=== PATIENT | female | born 1945 | race Caucasian/White ===

== ENCOUNTER 2020-05-02 20:04 | Inpatient (IN) ==
[2020-05-02] MEDS ORDERED: Morphine Sulfate 2 MG/ML SYRINGE IVP ONE ×2 (20:42→21:48)
[2020-05-02] MEDS ORDERED: Ondansetron 4 MG/2 ML VIAL IVP ONE (20:43)
[2020-05-02 20:58] LABS: Basophils # 0.1 K/mcL (0.0-0.2); Basophils % 0.3 %; Eosinophils % 0.2 %; Hematocrit 41.6 % (35.3-44.9); Hemoglobin 13.5 g/dL (11.5-15.4); Immature Granulocytes % 0.8 % (0-4); Lymphocytes # 5.5 K/mcL (0.6-4.6); Lymphocytes % 30.7 %; Mean Corpuscular HGB Conc 32.5 g/dL (31.6-35.5); Mean Corpuscular Hemoglobin 30.3 pg (28.0-33.3); Mean Corpuscular Volume 93.3 fL (83.0-100.0); Mean Platelet Volume 10.7 fL (9.4-12.4); Monocytes # 1.3 K/mcL (0.0-1.3); Platelet Count 384 K/mcL (140-400); Red Blood Count 4.46 M/mcL (3.82-4.97); Red Cell Distribution Width 13.1 % (11.5-14.5)
[2020-05-02 21:01] LABS: INR 0.9; Prothrombin Time 10.9 Seconds (9.4-12.1)
[2020-05-02 21:04] LABS: Activated Partial Thrombo Time 24.2 Seconds (26.0-36.0)
[2020-05-02 21:15] LABS: Platelet Estimate Normal (Normal); Reactive Lymphocytes Present (Not Present)
[2020-05-02 21:16] LABS: Alanine Aminotransferase 11 Units/L (7-52); Albumin 4.1 g/dL (3.5-5.7); Albumin/Globulin Ratio 1.5 (1.1-2.2); Alkaline Phosphatase 52 Units/L (34-104); Aspartate Amino Transferase 11 Units/L (13-39); BUN/Creatinine Ratio 25 (6-26); Bilirubin,Direct 0.1 mg/dL (0.0-0.2); Bilirubin,Indirect 0.4 mg/dL (0.0-1.0); Bilirubin,Total 0.5 mg/dL (0.3-1.0); Blood Urea Nitrogen 21 mg/dL (8-23); Calcium 8.6 mg/dL (8.6-10.3); Carbon Dioxide 28 mEq/L (23-29); Chloride 100 mEq/L (98-107); Globulin 2.8 g/dL (2.4-3.5); Glucose 126 mg/dL (70-105); Osmolality,Calculated 287 (280-300); Potassium 3.7 mEq/L (3.5-5.1); Sodium 136 mEq/L (136-145); Total Protein 6.9 g/dL (6.4-8.9); eGFR For African Americans > 60 (> 60); eGFR For Non-African Americans > 60 (> 60)
[2020-05-02] MEDS ORDERED: *HR* Labetalol 20 MG/4 ML SYRINGE IVP ONE (21:36)
[2020-05-02 21:50] LABS: Adenovirus Not Detected (Not Detect); Bordetella Pertussis Not Detected (Not Detect); Chlamydophila pneumoniae Not Detected (Not Detect); Coronavirus 229E Not Detected (Not Detect); Coronavirus HKU1 Not Detected (Not Detect); Coronavirus NL63 Not Detected (Not Detect); Coronavirus OC43 Not Detected (Not Detect); Human Metapneumovirus Not Detected (Not Detect); Human Rhinovirus/Enterovirus Not Detected (Not Detect); Influenza A Subtype 2009 H1 Not Detected (Not Detect); Influenza B Not Detected (Not Detect); Mycoplasma pneumoniae Not Detected (Not Detect); Parainfluenza Virus 1 Not Detected (Not Detect); Parainfluenza Virus 2 Not Detected (Not Detect); Parainfluenza Virus 3 Not Detected (Not Detect); Parainfluenza Virus 4 Not Detected (Not Detect); Respiratory Syncytial Virus Not Detected (Not Detect); SARS-CoV-2 Not Detected (Not Detect)
[2020-05-02] MEDS ORDERED: *HR* FentaNYL (PF) 100 MCG/2 ML VIAL IVP ONE (22:40)
[2020-05-02 22:58] LABS: Bacteria,Urine Moderate per hpf (None-Few); Bilirubin,Urine Negative (Negative); Blood,Urine Moderate (Negative); Clarity,Urine Clear (Clear); Color,Urine Light-Yellow (Yellow); Glucose,Urine (UA) Normal (Normal); Ketones,Urine Negative (Negative); Leukocyte Esterase,Urine Negative (Negative); Mucus,Urine Few per lpf (None-Few); Nitrite,Urine Positive (Negative); Protein,Urine 70 mg/dL (Neg-Trace); Specific Gravity,Urine 1.025 (1.010-1.025); Squamous Epithelial Cell,Urine Few per hpf (None-Few); Urobilinogen,Urine Normal (Normal)
[2020-05-02] MEDS ORDERED: *HR* HYDROmorphone (PF) 1 MG/ML SYRINGE IVP ONE (23:55)
[2020-05-02] MEDS ORDERED: Naloxone 0.4 MG/ML INJ IVP PRN (23:57)
[2020-05-02] MEDS ORDERED: Ondansetron 4 MG/2 ML VIAL IVP PRN (23:57)
[2020-05-03] MEDS: cefTRIAXone 1,000 MG in Water for inj. (sterile) 10 ML IVP SCH (01:21)
[2020-05-03] MEDS: *HR* OxyCODONE Oral Soln 5 MG/5 ML UD.LIQ PO PRN ×2 (04:16→08:59)
[2020-05-03 06:00] LABS: Basophils # 0.1 K/mcL (0.0-0.2); Basophils % 0.2 %; Hematocrit 39.6 % (35.3-44.9); Hemoglobin 12.7 g/dL (11.5-15.4); Immature Granulocytes % 0.6 % (0-4); Lymphocytes # 1.5 K/mcL (0.6-4.6); Lymphocytes % 6.7 %; Mean Corpuscular HGB Conc 32.1 g/dL (31.6-35.5); Mean Corpuscular Hemoglobin 30.8 pg (28.0-33.3); Mean Corpuscular Volume 96.1 fL (83.0-100.0); Mean Platelet Volume 11.2 fL (9.4-12.4); Monocytes # 1.3 K/mcL (0.0-1.3); Monocytes % 6.1 %; Neutrophils # 18.8 K/mcL (1.6-8.9); Platelet Count 322 K/mcL (140-400); Red Blood Count 4.12 M/mcL (3.82-4.97); Red Cell Distribution Width 13.2 % (11.5-14.5); Segmented Neutrophils % 86.4 %; White Blood Count 21.8 K/mcL (4.3-11.1)
[2020-05-03 06:18] LABS: BUN/Creatinine Ratio 30 (6-26); Blood Urea Nitrogen 24 mg/dL (8-23); Calcium 8.5 mg/dL (8.6-10.3); Carbon Dioxide 27 mEq/L (23-29); Chloride 101 mEq/L (98-107); Glucose 133 mg/dL (70-105); Osmolality,Calculated 290 (280-300); Sodium 137 mEq/L (136-145); eGFR For African Americans > 60 (> 60); eGFR For Non-African Americans > 60 (> 60)
[2020-05-03] MEDS ORDERED: *HR* OxyCODONE Oral Soln 5 MG/5 ML UD.LIQ PO PRN (07:19)
[2020-05-03] MEDS: Ondansetron 4 MG/2 ML VIAL IVP SCH ×4 (11:07→23:31)
[2020-05-03] MEDS: Acetaminophen IV 1,000 MG/100 ML INFUS..BTL IVPB SCH ×2 (11:29→18:13)
[2020-05-03 16:31] LABS: Adenovirus Not Detected (Not Detect); Bordetella Pertussis Not Detected (Not Detect); Chlamydophila pneumoniae Not Detected (Not Detect); Coronavirus 229E Not Detected (Not Detect); Coronavirus HKU1 Not Detected (Not Detect); Coronavirus NL63 Not Detected (Not Detect); Coronavirus OC43 Not Detected (Not Detect); Human Metapneumovirus Not Detected (Not Detect); Human Rhinovirus/Enterovirus Not Detected (Not Detect); Influenza A Subtype 2009 H1 Not Detected (Not Detect); Influenza B Not Detected (Not Detect); Mycoplasma pneumoniae Not Detected (Not Detect); Parainfluenza Virus 1 Not Detected (Not Detect); Parainfluenza Virus 2 Not Detected (Not Detect); Parainfluenza Virus 3 Not Detected (Not Detect); Parainfluenza Virus 4 Not Detected (Not Detect); Respiratory Syncytial Virus Not Detected (Not Detect); SARS-CoV-2 Not Detected (Not Detect)
[2020-05-03] MEDS: Morphine Sulfate 2 MG/ML SYRINGE IVP PRN (22:56)
[2020-05-04] MEDS: cefTRIAXone 1,000 MG in Water for inj. (sterile) 10 ML IVP SCH (02:56)
[2020-05-04] MEDS: Acetaminophen IV 1,000 MG/100 ML INFUS..BTL IVPB SCH ×2 (03:02→18:06)
[2020-05-04 04:52] LABS: Hematocrit 38.6 % (35.3-44.9); Hemoglobin 12.2 g/dL (11.5-15.4); Mean Corpuscular HGB Conc 31.6 g/dL (31.6-35.5); Mean Corpuscular Volume 95.1 fL (83.0-100.0); Platelet Count 276 K/mcL (140-400); Red Blood Count 4.06 M/mcL (3.82-4.97); Red Cell Distribution Width 13.5 % (11.5-14.5); White Blood Count 15.9 K/mcL (4.3-11.1)
[2020-05-04 05:07] LABS: BUN/Creatinine Ratio 30 (6-26); Blood Urea Nitrogen 25 mg/dL (8-23); Calcium 8.1 mg/dL (8.6-10.3); Carbon Dioxide 27 mEq/L (23-29); Chloride 97 mEq/L (98-107); Glucose 97 mg/dL (70-105); Magnesium 2.1 mg/dL (1.6-2.6); Osmolality,Calculated 280 (280-300); Phosphorous 3.5 mg/dL (2.7-4.5); Potassium 3.7 mEq/L (3.5-5.1); Sodium 133 mEq/L (136-145); eGFR For African Americans > 60 (> 60); eGFR For Non-African Americans > 60 (> 60)
[2020-05-04] MEDS: Ondansetron 4 MG/2 ML VIAL IVP SCH (05:56)
[2020-05-04] MEDS ORDERED: amLODIPine 5 MG TABLET PO SCH (09:00)
[2020-05-04] MEDS: Morphine Sulfate 2 MG/ML SYRINGE IVP PRN (09:48)
[2020-05-04] MEDS ORDERED: *HR* Propofol 200 MG/20 ML VIAL IVP ONE (10:08)
[2020-05-04] MEDS ORDERED: *HR* FentaNYL (PF) 100 MCG/2 ML VIAL ONE ×2 (10:08→12:20)
[2020-05-04] MEDS ORDERED: Lidocaine -MPF 2% 2 ML VIAL ONE (10:09)
[2020-05-04] MEDS ORDERED: Lidocaine HCL 4 ML Topical Solution (Laryng-O-Jet Kit Sterile Pak) TP ONE (10:09)
[2020-05-04] MEDS ORDERED: *HR* Succinylcholine 200 MG/10 ML VIAL IVP ONE (10:09)
[2020-05-04] MEDS ORDERED: Dexamethasone 4 MG/ML VIAL ONE (10:09)
[2020-05-04] MEDS ORDERED: Ondansetron 4 MG/2 ML VIAL ONE (10:09)
[2020-05-04] MEDS ORDERED: Famotidine 20 MG/2 ML VIAL IVP ONE ×2 (10:14→14:37)
[2020-05-04] MEDS ORDERED: *HR* OxyCODONE Immed Rel 5 MG TABLET PO PRN (10:21)
[2020-05-04] MEDS ORDERED: Ondansetron 4 MG/2 ML VIAL IVP PRN (10:21)
[2020-05-04] MEDS ORDERED: *HR* Labetalol 20 MG/4 ML SYRINGE IVP PRN (10:21)
[2020-05-04] MEDS ORDERED: Famotidine 20 MG/2 ML VIAL ONE (10:57)
[2020-05-04] MEDS ORDERED: ceFAZolin 2,000 MG in 0.9 % Sodium Chloride 100 ML IVPB ONE (11:43)
[2020-05-04] MEDS ORDERED: Ethanol\\Acetic Acid\\Na Ace\\Ben 1,000 ML IRRIG.SOLN IR ONE (12:24)
[2020-05-04] MEDS: *HR* HYDROmorphone PF 0.5 MG/0.5 ML SYRINGE IVP PRN ×2 (13:26→13:36)
[2020-05-04 13:39] LABS: Hematocrit 37.9 % (35.3-44.9)
[2020-05-04] MEDS ORDERED: Sennosides 8.6 MG TABLET PO PRN (14:37)
[2020-05-04] MEDS ORDERED: Naloxone 0.4 MG/ML INJ IVP PRN (14:37)
[2020-05-04] MEDS ORDERED: *HR* OxyCODONE/APAP 5/325 TABLET PO PRN (14:37)
[2020-05-04] MEDS: CeFAZolin 2 GM/120 ML BAG IVPB SCH (19:15)
[2020-05-05] MEDS: Acetaminophen IV 1,000 MG/100 ML INFUS..BTL IVPB SCH ×3 (02:42→19:36)
[2020-05-05] MEDS: CeFAZolin 2 GM/120 ML BAG IVPB SCH (04:03)
[2020-05-05 06:58] LABS: Hematocrit 30.6 % (35.3-44.9); Mean Corpuscular HGB Conc 32.4 g/dL (31.6-35.5); Mean Corpuscular Hemoglobin 30.6 pg (28.0-33.3); Mean Corpuscular Volume 94.4 fL (83.0-100.0); Mean Platelet Volume 10.9 fL (9.4-12.4); Platelet Count 225 K/mcL (140-400); Red Blood Count 3.24 M/mcL (3.82-4.97); Red Cell Distribution Width 13.3 % (11.5-14.5); White Blood Count 15.6 K/mcL (4.3-11.1)
[2020-05-05 06:59] LABS: Hemoglobin 9.9 g/dL (11.5-15.4)
[2020-05-05 07:18] LABS: BUN/Creatinine Ratio 28 (6-26); Blood Urea Nitrogen 24 mg/dL (8-23); Calcium 7.5 mg/dL (8.6-10.3); Carbon Dioxide 27 mEq/L (23-29); Chloride 100 mEq/L (98-107); Glucose 108 mg/dL (70-105); Magnesium 2.2 mg/dL (1.6-2.6); Osmolality,Calculated 281 (280-300); Phosphorous 3.9 mg/dL (2.7-4.5); Sodium 133 mEq/L (136-145); eGFR For African Americans > 60 (> 60); eGFR For Non-African Americans > 60 (> 60)
[2020-05-05] MEDS: *HR* OxyCODONE Immed Rel 5 MG TABLET PO PRN (10:12)
[2020-05-05] MEDS: Aspirin Enteric Coated 81 MG Tablet PO SCH (10:13)
[2020-05-05] MEDS: Cholecalciferol (D-3) 1,000 UNIT (25MCG) TABLET PO SCH (10:14)
[2020-05-05] MEDS: Calcium Gluconate 1gm/50mL 1 GM/50 ML BAG IVPB SCH ×2 (10:15→11:24)
[2020-05-05] MEDS: amLODIPine 5 MG TABLET PO SCH (10:15)
[2020-05-05 12:27] LABS: Basophils % 0.2 %; Eosinophils % 0.2 %; Hematocrit 31.9 % (35.3-44.9); Hemoglobin 10.1 g/dL (11.5-15.4); Immature Granulocytes % 0.7 % (0-4); Lymphocytes # 1.9 K/mcL (0.6-4.6); Lymphocytes % 10.2 %; Mean Corpuscular HGB Conc 31.7 g/dL (31.6-35.5); Mean Corpuscular Volume 94.7 fL (83.0-100.0); Mean Platelet Volume 10.8 fL (9.4-12.4); Monocytes # 1.4 K/mcL (0.0-1.3); Monocytes % 7.7 %; Neutrophils # 14.9 K/mcL (1.6-8.9); Platelet Count 244 K/mcL (140-400); Red Blood Count 3.37 M/mcL (3.82-4.97); Red Cell Distribution Width 13.3 % (11.5-14.5); White Blood Count 18.5 K/mcL (4.3-11.1)
[2020-05-05 12:45] LABS: % Iron Saturation 34 % (15-50); Iron 70 mcg/dL (50-170); Transferrin 145 mg/dL (203-362)
[2020-05-05 13:02] LABS: Ferritin 453 ng/mL (10-120)
[2020-05-05 13:07] LABS: Folate 4.9 ng/mL (3.0-16.0)
[2020-05-06] MEDS: *HR* OxyCODONE Immed Rel 5 MG TABLET PO PRN ×3 (01:33→19:05)
[2020-05-06 02:38] LABS: Hematocrit 31.8 % (35.3-44.9); Mean Corpuscular HGB Conc 31.4 g/dL (31.6-35.5); Mean Corpuscular Hemoglobin 30.1 pg (28.0-33.3); Mean Corpuscular Volume 95.8 fL (83.0-100.0); Mean Platelet Volume 11.4 fL (9.4-12.4); Platelet Count 247 K/mcL (140-400); Red Blood Count 3.32 M/mcL (3.82-4.97); Red Cell Distribution Width 13.6 % (11.5-14.5); White Blood Count 15.4 K/mcL (4.3-11.1)
[2020-05-06 02:54] LABS: BUN/Creatinine Ratio 32 (6-26); Blood Urea Nitrogen 30 mg/dL (8-23); Carbon Dioxide 26 mEq/L (23-29); Chloride 99 mEq/L (98-107); Glucose 102 mg/dL (70-105); Osmolality,Calculated 288 (280-300); Potassium 3.7 mEq/L (3.5-5.1); Sodium 136 mEq/L (136-145); eGFR For African Americans > 60 (> 60); eGFR For Non-African Americans 58 (> 60)
[2020-05-06] MEDS: Acetaminophen IV 1,000 MG/100 ML INFUS..BTL IVPB SCH ×3 (03:06→19:05)
[2020-05-06] MEDS: Cholecalciferol (D-3) 1,000 UNIT (25MCG) TABLET PO SCH (08:43)
[2020-05-06] MEDS: Aspirin Enteric Coated 81 MG Tablet PO SCH (08:43)
[2020-05-06] MEDS: amLODIPine 5 MG TABLET PO SCH (08:43)
[2020-05-07] MEDS: *HR* OxyCODONE Immed Rel 5 MG TABLET PO PRN ×2 (01:25→12:45)
[2020-05-07] MEDS: Acetaminophen IV 1,000 MG/100 ML INFUS..BTL IVPB SCH ×2 (03:03→12:44)
[2020-05-07] MEDS: amLODIPine 5 MG TABLET PO SCH (09:05)
[2020-05-07] MEDS: Cholecalciferol (D-3) 1,000 UNIT (25MCG) TABLET PO SCH (09:05)
[2020-05-07] MEDS: Aspirin Enteric Coated 81 MG Tablet PO SCH (09:05)
[2020-05-07 10:11] LABS: Basophils # 0.1 K/mcL (0.0-0.2); Basophils % 0.4 %; Eosinophils # 0.3 K/mcL (0.0-0.6); Eosinophils % 2.3 %; Hematocrit 28.1 % (35.3-44.9); Immature Granulocytes % 0.4 % (0-4); Lymphocytes # 1.5 K/mcL (0.6-4.6); Lymphocytes % 10.6 %; Mean Corpuscular Hemoglobin 30.9 pg (28.0-33.3); Mean Corpuscular Volume 96.6 fL (83.0-100.0); Mean Platelet Volume 10.8 fL (9.4-12.4); Monocytes # 0.9 K/mcL (0.0-1.3); Monocytes % 6.6 %; Neutrophils # 10.9 K/mcL (1.6-8.9); Platelet Count 243 K/mcL (140-400); Red Blood Count 2.91 M/mcL (3.82-4.97); Red Cell Distribution Width 13.5 % (11.5-14.5); Segmented Neutrophils % 79.7 %; White Blood Count 13.6 K/mcL (4.3-11.1)
[2020-05-07 10:20] VITALS: BP 117/64
[2020-05-07 10:30] LABS: BUN/Creatinine Ratio 37 (6-26); Blood Urea Nitrogen 31 mg/dL (8-23); Calcium 8.1 mg/dL (8.6-10.3); Carbon Dioxide 29 mEq/L (23-29); Chloride 100 mEq/L (98-107); Glucose 125 mg/dL (70-105); Magnesium 2.4 mg/dL (1.6-2.6); Osmolality,Calculated 290 (280-300); Phosphorous 4.2 mg/dL (2.7-4.5); Potassium 3.6 mEq/L (3.5-5.1); Sodium 136 mEq/L (136-145); eGFR For African Americans > 60 (> 60); eGFR For Non-African Americans > 60 (> 60)
== END 2020-05-07 16:10 | DRG 481 ==
LOC: EMEROOARM 20:04 → 3NENU 20:04 → SUATTDRO 22:42 → 3NENU 23:07
PROVIDERS: ADMIT Internal Medicine; ATTEND Internal Medicine

== ENCOUNTER 2020-11-03 15:33 | Inpatient (IN) ==
[2020-11-03] MEDS ORDERED: MOM Conc 10 ML UD.LIQ PO PRN (16:06)
[2020-11-03] MEDS ORDERED: Naloxone 0.4 MG/ML INJ IVP PRN (16:06)
[2020-11-03] MEDS ORDERED: Ondansetron 4 MG/2 ML VIAL IVP PRN (16:06)
[2020-11-03] MEDS ORDERED: Melatonin 3 MG TABLET PO PRN (16:06)
[2020-11-03 16:45] LABS: Basophils # 0.1 K/mcL (0.0-0.2); Basophils % 1.3 %; Eosinophils # 0.5 K/mcL (0.0-0.6); Eosinophils % 4.4 %; Hematocrit 40.4 % (35.3-44.9); INR 1.1; Immature Granulocytes % 0.3 % (0-4); Lymphocytes # 3.7 K/mcL (0.6-4.6); Lymphocytes % 33.2 %; Mean Corpuscular HGB Conc 32.2 g/dL (31.6-35.5); Mean Corpuscular Hemoglobin 29.4 pg (28.0-33.3); Mean Corpuscular Volume 91.4 fL (83.0-100.0); Mean Platelet Volume 10.4 fL (9.4-12.4); Monocytes # 0.7 K/mcL (0.0-1.3); Monocytes % 6.6 %; Platelet Count 342 K/mcL (140-400); Prothrombin Time 12.2 Seconds (9.4-12.1); Red Blood Count 4.42 M/mcL (3.82-4.97); Red Cell Distribution Width 14.1 % (11.5-14.5); Segmented Neutrophils % 54.2 %
[2020-11-03 17:03] LABS: BUN/Creatinine Ratio 22 (6-26); Blood Urea Nitrogen 17 mg/dL (8-23); Calcium 9.2 mg/dL (8.6-10.3); Carbon Dioxide 25 mEq/L (23-29); Chloride 102 mEq/L (98-107); Glucose 93 mg/dL (70-105); Osmolality,Calculated 285 (280-300); Potassium 3.8 mEq/L (3.5-5.1); Sodium 137 mEq/L (136-145); eGFR For African Americans > 60 (> 60); eGFR For Non-African Americans > 60 (> 60)
[2020-11-03 19:22] LABS: Adenovirus Not Detected (Not Detect); Bordetella Pertussis Not Detected (Not Detect); Chlamydophila pneumoniae Not Detected (Not Detect); Coronavirus 229E Not Detected (Not Detect); Coronavirus HKU1 Not Detected (Not Detect); Coronavirus NL63 Not Detected (Not Detect); Coronavirus OC43 Not Detected (Not Detect); Human Metapneumovirus Not Detected (Not Detect); Human Rhinovirus/Enterovirus Not Detected (Not Detect); Influenza A Subtype 2009 H1 Not Detected (Not Detect); Influenza B Not Detected (Not Detect); Mycoplasma pneumoniae Not Detected (Not Detect); Parainfluenza Virus 1 Not Detected (Not Detect); Parainfluenza Virus 2 Not Detected (Not Detect); Parainfluenza Virus 3 Not Detected (Not Detect); Parainfluenza Virus 4 Not Detected (Not Detect); Respiratory Syncytial Virus Not Detected (Not Detect); SARS-CoV-2 Not Detected (Not Detect)
[2020-11-04 03:38] LABS: Basophils # 0.1 K/mcL (0.0-0.2); Basophils % 1.3 %; Eosinophils # 0.4 K/mcL (0.0-0.6); Eosinophils % 4.6 %; Hematocrit 37.2 % (35.3-44.9); Immature Granulocytes % 0.2 % (0-4); Lymphocytes # 2.7 K/mcL (0.6-4.6); Lymphocytes % 32.3 %; Mean Corpuscular HGB Conc 32.3 g/dL (31.6-35.5); Mean Corpuscular Hemoglobin 29.5 pg (28.0-33.3); Mean Corpuscular Volume 91.4 fL (83.0-100.0); Monocytes # 0.6 K/mcL (0.0-1.3); Monocytes % 7.2 %; Neutrophils # 4.5 K/mcL (1.6-8.9); Platelet Count 317 K/mcL (140-400); Red Blood Count 4.07 M/mcL (3.82-4.97); Red Cell Distribution Width 14.2 % (11.5-14.5); Segmented Neutrophils % 54.4 %; White Blood Count 8.2 K/mcL (4.3-11.1)
[2020-11-04 03:58] LABS: BUN/Creatinine Ratio 21 (6-26); Blood Urea Nitrogen 15 mg/dL (8-23); Calcium 8.7 mg/dL (8.6-10.3); Carbon Dioxide 26 mEq/L (23-29); Chloride 104 mEq/L (98-107); Glucose 98 mg/dL (70-105); Osmolality,Calculated 287 (280-300); Potassium 3.5 mEq/L (3.5-5.1); Sodium 138 mEq/L (136-145); eGFR For African Americans > 60 (> 60); eGFR For Non-African Americans > 60 (> 60)
[2020-11-04] MEDS: Aspirin Enteric Coated 81 MG Tablet PO SCH (07:53)
[2020-11-04] MEDS: amLODIPine 5 MG TABLET PO SCH (07:54)
[2020-11-04] MEDS ORDERED: Ondansetron 4 MG/2 ML VIAL IVP PRN (14:55)
[2020-11-04] MEDS ORDERED: *HR* Propofol 200 MG/20 ML VIAL IVP ONE (15:03)
[2020-11-04] MEDS ORDERED: Lidocaine -MPF 2% 2 ML VIAL ONE (15:05)
[2020-11-04] MEDS ORDERED: Lidocaine HCL 4 ML Topical Solution (Laryng-O-Jet Kit Sterile Pak) TP ONE (15:28)
[2020-11-04] MEDS ORDERED: *HR* Rocuronium Bromide 50 MG/5 ML VIAL ONE (15:29)
[2020-11-04] MEDS ORDERED: Acetaminophen IV 1,000 MG/100 ML BAG IVPB ONE (16:09)
[2020-11-04] MEDS ORDERED: *HR* Heparin 5,000 UNIT/ML VIAL ONE (16:46)
[2020-11-04] MEDS ORDERED: EPHEDrine 50 MG/ML VIAL ONE (16:52)
[2020-11-04] MEDS ORDERED: *HR* FentaNYL (PF) 100 MCG/2 ML VIAL ONE (17:07)
[2020-11-04] MEDS ORDERED: CeFAZolin Syr 2,000MG/20 ML 2,000 MG/20 ML SYRINGE IVPB ONE (17:15)
[2020-11-04] MEDS ORDERED: Sugammadex Sodium 200 MG/2 ML VIAL IV ONE (18:45)
[2020-11-04] MEDS ORDERED: D5% in 0.45% NACL 1,000 ML IVC SCH (19:15)
[2020-11-04] MEDS: *HR* FentaNYL (PF) 100 MCG/2 ML VIAL IVP PRN ×2 (19:24→19:46)
[2020-11-04] MEDS: CeFAZolin 2 GM/120 ML BAG IVPB SCH (23:53)
[2020-11-05 01:04] LABS: Basophils % 0.2 %; Eosinophils % 0.1 %; Hematocrit 32.6 % (35.3-44.9); Hemoglobin 10.8 g/dL (11.5-15.4); Immature Granulocytes % 0.5 % (0-4); Lymphocytes # 0.8 K/mcL (0.6-4.6); Lymphocytes % 4.8 %; Mean Corpuscular HGB Conc 33.1 g/dL (31.6-35.5); Mean Corpuscular Hemoglobin 30.8 pg (28.0-33.3); Mean Corpuscular Volume 92.9 fL (83.0-100.0); Mean Platelet Volume 10.9 fL (9.4-12.4); Monocytes # 0.4 K/mcL (0.0-1.3); Monocytes % 2.2 %; Neutrophils # 15.2 K/mcL (1.6-8.9); Platelet Count 304 K/mcL (140-400); Red Blood Count 3.51 M/mcL (3.82-4.97); Red Cell Distribution Width 14.4 % (11.5-14.5); Segmented Neutrophils % 92.2 %
[2020-11-05 01:06] LABS: White Blood Count 16.5 K/mcL (4.3-11.1)
[2020-11-05 01:24] LABS: BUN/Creatinine Ratio 21 (6-26); Blood Urea Nitrogen 18 mg/dL (8-23); Calcium 8.1 mg/dL (8.6-10.3); Carbon Dioxide 24 mEq/L (23-29); Chloride 103 mEq/L (98-107); Glucose 189 mg/dL (70-105); Magnesium 1.7 mg/dL (1.6-2.6); Osmolality,Calculated 289 (280-300); Potassium 3.8 mEq/L (3.5-5.1); Sodium 136 mEq/L (136-145); eGFR For African Americans > 60 (> 60); eGFR For Non-African Americans > 60 (> 60)
[2020-11-05] MEDS: CeFAZolin 2 GM/120 ML BAG IVPB SCH (08:38)
[2020-11-05] MEDS: amLODIPine 5 MG TABLET PO SCH (08:39)
[2020-11-05] MEDS: Aspirin Enteric Coated 81 MG Tablet PO SCH (08:39)
[2020-11-05] MEDS: *HR* HYDROcodone/Acet 5/325 mg TABLET PO PRN ×3 (08:41→20:15)
[2020-11-05] MEDS ORDERED: polyethylene glycoL 3350 17 GM POWD.PACK PO PRN (08:51)
[2020-11-05] MEDS: polyethylene glycoL 3350 17 GM POWD.PACK PO SCH (10:46)
[2020-11-05] MEDS: *HR* Enoxaparin 30 MG/0.3 ML SYRINGE SQ SCH (18:15)
[2020-11-06 01:33] LABS: BUN/Creatinine Ratio 24 (6-26); Blood Urea Nitrogen 21 mg/dL (8-23); Calcium 8.2 mg/dL (8.6-10.3); Carbon Dioxide 26 mEq/L (23-29); Chloride 103 mEq/L (98-107); Glucose 113 mg/dL (70-105); Magnesium 1.8 mg/dL (1.6-2.6); Osmolality,Calculated 286 (280-300); Sodium 136 mEq/L (136-145); eGFR For African Americans > 60 (> 60); eGFR For Non-African Americans > 60 (> 60)
[2020-11-06 04:25] LABS: Basophils # 0.1 K/mcL (0.0-0.2); Basophils % 0.5 %; Eosinophils # 0.1 K/mcL (0.0-0.6); Eosinophils % 0.4 %; Hematocrit 26.6 % (35.3-44.9); Hemoglobin 8.5 g/dL (11.5-15.4); Immature Granulocytes % 0.4 % (0-4); Lymphocytes # 2.4 K/mcL (0.6-4.6); Lymphocytes % 19.2 %; Mean Corpuscular Hemoglobin 29.5 pg (28.0-33.3); Mean Corpuscular Volume 92.4 fL (83.0-100.0); Monocytes # 0.9 K/mcL (0.0-1.3); Monocytes % 6.9 %; Neutrophils # 9.2 K/mcL (1.6-8.9); Platelet Count 283 K/mcL (140-400); Red Blood Count 2.88 M/mcL (3.82-4.97); Red Cell Distribution Width 14.5 % (11.5-14.5); Segmented Neutrophils % 72.6 %; White Blood Count 12.7 K/mcL (4.3-11.1)
[2020-11-06] MEDS: *HR* Enoxaparin 30 MG/0.3 ML SYRINGE SQ SCH ×2 (05:40→17:42)
[2020-11-06] MEDS: Aspirin Enteric Coated 81 MG Tablet PO SCH (09:11)
[2020-11-06] MEDS: amLODIPine 5 MG TABLET PO SCH (09:11)
[2020-11-06] MEDS: polyethylene glycoL 3350 17 GM POWD.PACK PO SCH (09:11)
[2020-11-06] MEDS: *HR* HYDROcodone/Acet 5/325 mg TABLET PO PRN (09:53)
[2020-11-06] MEDS ORDERED: Iron Sucrose Complex 200 MG in 0.9 % Sodium Chloride 100 ML IVPB ONE (10:43)
[2020-11-07 01:35] LABS: Basophils # 0.1 K/mcL (0.0-0.2); Eosinophils # 0.2 K/mcL (0.0-0.6); Eosinophils % 2.2 %; Hematocrit 24.1 % (35.3-44.9); Hemoglobin 7.8 g/dL (11.5-15.4); Immature Granulocytes % 0.2 % (0-4); Lymphocytes # 2.9 K/mcL (0.6-4.6); Lymphocytes % 32.1 %; Mean Corpuscular HGB Conc 32.4 g/dL (31.6-35.5); Mean Corpuscular Hemoglobin 29.8 pg (28.0-33.3); Mean Platelet Volume 11.3 fL (9.4-12.4); Monocytes # 0.8 K/mcL (0.0-1.3); Monocytes % 8.9 %; Platelet Count 251 K/mcL (140-400); Red Blood Count 2.62 M/mcL (3.82-4.97); Red Cell Distribution Width 14.5 % (11.5-14.5); Segmented Neutrophils % 55.6 %; White Blood Count 8.9 K/mcL (4.3-11.1)
[2020-11-07 01:38] LABS: BUN/Creatinine Ratio 26 (6-26); Blood Urea Nitrogen 20 mg/dL (8-23); Carbon Dioxide 27 mEq/L (23-29); Chloride 104 mEq/L (98-107); Glucose 96 mg/dL (70-105); Magnesium 1.9 mg/dL (1.6-2.6); Osmolality,Calculated 286 (280-300); Potassium 3.8 mEq/L (3.5-5.1); Sodium 137 mEq/L (136-145); eGFR For African Americans > 60 (> 60); eGFR For Non-African Americans > 60 (> 60)
[2020-11-07] MEDS: *HR* Enoxaparin 30 MG/0.3 ML SYRINGE SQ SCH ×2 (06:16→17:05)
[2020-11-07] MEDS: Aspirin Enteric Coated 81 MG Tablet PO SCH (07:24)
[2020-11-07] MEDS: amLODIPine 5 MG TABLET PO SCH (07:24)
[2020-11-07] MEDS: *HR* HYDROcodone/Acet 5/325 mg TABLET PO PRN ×2 (07:36→19:32)
[2020-11-07] MEDS ORDERED: Isovue-370 500 ML BOTTLE IVP ONE (07:48)
[2020-11-07] MEDS: polyethylene glycoL 3350 17 GM POWD.PACK PO SCH (15:47)
[2020-11-08 02:22] LABS: Basophils # 0.1 K/mcL (0.0-0.2); Basophils % 1.1 %; Eosinophils # 0.3 K/mcL (0.0-0.6); Eosinophils % 3.5 %; Hematocrit 24.5 % (35.3-44.9); Hemoglobin 7.7 g/dL (11.5-15.4); Immature Granulocytes % 0.4 % (0-4); Lymphocytes # 3.1 K/mcL (0.6-4.6); Lymphocytes % 32.8 %; Mean Corpuscular HGB Conc 31.4 g/dL (31.6-35.5); Mean Corpuscular Hemoglobin 29.2 pg (28.0-33.3); Mean Corpuscular Volume 92.8 fL (83.0-100.0); Mean Platelet Volume 11.2 fL (9.4-12.4); Monocytes # 0.7 K/mcL (0.0-1.3); Monocytes % 7.7 %; Neutrophils # 5.1 K/mcL (1.6-8.9); Platelet Count 260 K/mcL (140-400); Red Blood Count 2.64 M/mcL (3.82-4.97); Red Cell Distribution Width 14.6 % (11.5-14.5); Segmented Neutrophils % 54.5 %; White Blood Count 9.4 K/mcL (4.3-11.1)
[2020-11-08 02:36] LABS: BUN/Creatinine Ratio 28 (6-26); Blood Urea Nitrogen 19 mg/dL (8-23); Calcium 8.1 mg/dL (8.6-10.3); Carbon Dioxide 29 mEq/L (23-29); Chloride 102 mEq/L (98-107); Glucose 98 mg/dL (70-105); Magnesium 1.9 mg/dL (1.6-2.6); Osmolality,Calculated 286 (280-300); Potassium 3.8 mEq/L (3.5-5.1); Sodium 137 mEq/L (136-145); eGFR For African Americans > 60 (> 60); eGFR For Non-African Americans > 60 (> 60)
[2020-11-08] MEDS: *HR* Enoxaparin 30 MG/0.3 ML SYRINGE SQ SCH (06:07)
[2020-11-08] MEDS: Aspirin Enteric Coated 81 MG Tablet PO SCH (07:28)
[2020-11-08] MEDS: amLODIPine 5 MG TABLET PO SCH (07:28)
[2020-11-08] MEDS: polyethylene glycoL 3350 17 GM POWD.PACK PO SCH (07:40)
[2020-11-08] MEDS: *HR* HYDROcodone/Acet 5/325 mg TABLET PO PRN (20:14)
[2020-11-09 01:00] LABS: Basophils # 0.1 K/mcL (0.0-0.2); Basophils % 0.9 %; Eosinophils # 0.4 K/mcL (0.0-0.6); Eosinophils % 4.9 %; Hematocrit 24.1 % (35.3-44.9); Hemoglobin 7.7 g/dL (11.5-15.4); Immature Granulocytes % 0.6 % (0-4); Lymphocytes # 2.9 K/mcL (0.6-4.6); Lymphocytes % 32.5 %; Mean Corpuscular Hemoglobin 29.6 pg (28.0-33.3); Mean Corpuscular Volume 92.7 fL (83.0-100.0); Mean Platelet Volume 11.1 fL (9.4-12.4); Monocytes # 0.7 K/mcL (0.0-1.3); Monocytes % 7.9 %; Neutrophils # 4.8 K/mcL (1.6-8.9); Platelet Count 271 K/mcL (140-400); Red Cell Distribution Width 14.2 % (11.5-14.5); Segmented Neutrophils % 53.2 %
[2020-11-09 01:24] LABS: Alanine Aminotransferase 8 Units/L (7-52); Albumin 3.2 g/dL (3.5-5.7); Albumin/Globulin Ratio 1.5 (1.1-2.2); Alkaline Phosphatase 46 Units/L (34-104); Aspartate Amino Transferase 17 Units/L (13-39); BUN/Creatinine Ratio 22 (6-26); Bilirubin,Direct 0.1 mg/dL (0.0-0.2); Bilirubin,Indirect 0.5 mg/dL (0.0-1.0); Bilirubin,Total 0.6 mg/dL (0.3-1.0); Blood Urea Nitrogen 14 mg/dL (8-23); Calcium 8.1 mg/dL (8.6-10.3); Carbon Dioxide 29 mEq/L (23-29); Chloride 104 mEq/L (98-107); Globulin 2.2 g/dL (2.4-3.5); Glucose 107 mg/dL (70-105); Magnesium 1.9 mg/dL (1.6-2.6); Osmolality,Calculated 287 (280-300); Potassium 3.7 mEq/L (3.5-5.1); Sodium 138 mEq/L (136-145); Total Protein 5.4 g/dL (6.4-8.9); eGFR For African Americans > 60 (> 60); eGFR For Non-African Americans > 60 (> 60)
[2020-11-09] MEDS: Aspirin Enteric Coated 81 MG Tablet PO SCH (08:46)
[2020-11-09] MEDS: amLODIPine 5 MG TABLET PO SCH (08:46)
[2020-11-09] MEDS: CeFAZolin 2 GM/120 ML BAG IVPB SCH ×2 (16:16→23:20)
[2020-11-09] MEDS: polyethylene glycoL 3350 17 GM POWD.PACK PO SCH (16:22)
[2020-11-09] MEDS: *HR* HYDROcodone/Acet 5/325 mg TABLET PO PRN (20:25)
[2020-11-10 01:33] LABS: Basophils # 0.1 K/mcL (0.0-0.2); Eosinophils # 0.5 K/mcL (0.0-0.6); Eosinophils % 5.4 %; Hematocrit 24.7 % (35.3-44.9); Hemoglobin 7.9 g/dL (11.5-15.4); Immature Granulocytes % 0.6 % (0-4); Lymphocytes # 2.8 K/mcL (0.6-4.6); Lymphocytes % 29.6 %; Mean Corpuscular Hemoglobin 29.8 pg (28.0-33.3); Mean Corpuscular Volume 93.2 fL (83.0-100.0); Monocytes # 0.8 K/mcL (0.0-1.3); Monocytes % 8.3 %; Neutrophils # 5.3 K/mcL (1.6-8.9); Platelet Count 319 K/mcL (140-400); Red Blood Count 2.65 M/mcL (3.82-4.97); Red Cell Distribution Width 14.4 % (11.5-14.5); Segmented Neutrophils % 55.1 %; White Blood Count 9.6 K/mcL (4.3-11.1)
[2020-11-10 01:50] LABS: BUN/Creatinine Ratio 19 (6-26); Blood Urea Nitrogen 13 mg/dL (8-23); Calcium 7.9 mg/dL (8.6-10.3); Carbon Dioxide 28 mEq/L (23-29); Chloride 104 mEq/L (98-107); Glucose 100 mg/dL (70-105); Osmolality,Calculated 286 (280-300); Potassium 3.7 mEq/L (3.5-5.1); Sodium 138 mEq/L (136-145); eGFR For African Americans > 60 (> 60); eGFR For Non-African Americans > 60 (> 60)
[2020-11-10 02:07] LABS: Triiodothyronine (T3) Free 1.9 pg/mL (2.50-3.90)
[2020-11-10] MEDS: CeFAZolin 2 GM/120 ML BAG IVPB SCH ×2 (07:27→16:41)
[2020-11-10] MEDS: amLODIPine 5 MG TABLET PO SCH (07:27)
[2020-11-10] MEDS: Aspirin Enteric Coated 81 MG Tablet PO SCH (07:27)
[2020-11-10] MEDS: polyethylene glycoL 3350 17 GM POWD.PACK PO SCH (16:42)
[2020-11-10] MEDS: *HR* HYDROcodone/Acet 5/325 mg TABLET PO PRN (20:19)
[2020-11-11] MEDS: CeFAZolin 2 GM/120 ML BAG IVPB SCH ×2 (00:43→09:41)
[2020-11-11 04:55] VITALS: BP 123/76
[2020-11-11 04:55] LABS: Basophils # 0.1 K/mcL (0.0-0.2); Eosinophils # 0.5 K/mcL (0.0-0.6); Eosinophils % 6.5 %; Hemoglobin 7.8 g/dL (11.5-15.4); Immature Granulocytes % 0.4 % (0-4); Lymphocytes # 2.3 K/mcL (0.6-4.6); Lymphocytes % 32.5 %; Mean Corpuscular HGB Conc 32.5 g/dL (31.6-35.5); Mean Corpuscular Hemoglobin 29.9 pg (28.0-33.3); Mean Platelet Volume 10.4 fL (9.4-12.4); Monocytes # 0.6 K/mcL (0.0-1.3); Monocytes % 8.4 %; Neutrophils # 3.5 K/mcL (1.6-8.9); Platelet Count 319 K/mcL (140-400); Red Blood Count 2.61 M/mcL (3.82-4.97); Red Cell Distribution Width 14.8 % (11.5-14.5); Segmented Neutrophils % 51.2 %; White Blood Count 6.9 K/mcL (4.3-11.1)
[2020-11-11 05:13] LABS: BUN/Creatinine Ratio 20 (6-26); Blood Urea Nitrogen 13 mg/dL (8-23); Carbon Dioxide 29 mEq/L (23-29); Chloride 104 mEq/L (98-107); Glucose 103 mg/dL (70-105); Osmolality,Calculated 286 (280-300); Potassium 3.9 mEq/L (3.5-5.1); Sodium 138 mEq/L (136-145); eGFR For African Americans > 60 (> 60); eGFR For Non-African Americans > 60 (> 60)
[2020-11-11] MEDS ORDERED: *HR* Enoxaparin 30 MG/0.3 ML SYRINGE SQ SCH (06:00)
[2020-11-11] MEDS: Aspirin Enteric Coated 81 MG Tablet PO SCH (09:41)
[2020-11-11] MEDS: amLODIPine 5 MG TABLET PO SCH (09:42)
[2020-11-11] MEDS: polyethylene glycoL 3350 17 GM POWD.PACK PO SCH (09:43)
[2020-11-11] MEDS ORDERED: rifAMPin 150 MG CAPSULE PO SCH (09:45)
== END 2020-11-11 13:52 | disposition home health service (06) | DRG 480 ==
LOC: 3NENU → SUATTDRO 15:42
PROVIDERS: ADMIT Internal Medicine; ATTEND Internal Medicine